=== PATIENT | male | born 1935 | race African-American/Black ===

== ENCOUNTER 2024-07-22 17:00 | Inpatient (IN) | payer MEDICARE ==
[2024-07-22 17:29] LABS: Bacteria/HPF None Seen HPF (None Seen); Bilirubin Negative (Negative); Blood, Urine Trace (Negative); CAUTI Indications for Culture Dysuria,urgency,freq; Clarity Clear (Clear); Glucose, Urine (Dipstick) 30 mg/dL (Negative); Ketone, Urine Negative (Negative); Leukocyte Negative Leu/uL (Negative); Nitrite Negative (Negative); Protein, Urine (Dipstick) 20 mg/dL (Neg-Trace); RBC/HPF None Seen HPF (0-3); Specific Gravity, Urine 1.005 (1.002-1.036); Squamous Epithelial None Seen HPF (0-3); Urobilinogen Normal mg/dL (Less than 2); WBC/HPF 0-3 HPF (0-3); pH, Urine 6.5 (5.0-9.0)
[2024-07-22 17:30] LABS: Urine Culture Reflex No No
[2024-07-22 18:15] LABS: #Basophils 0.04 10x3/uL (0.0-0.2); %Basophils 0.5 % (0.0-1.0); %Eosinophils 1.4 % (0.0-10.0); %Monocytes 9.3 % (0.0-10.0); %Neutrophils 66.4 % (42.0-75.0); Hematocrit 36.9 % (42.0-52.0); Hemoglobin 11.9 g/dL (14.0-18.0); Mean Corpuscular HGB CONC 32.2 g/dL (32.0-36.0); Mean Corpuscular Hemoglobin 31.7 pg (27.0-31.0); Mean Corpuscular Volume 98.4 fL (78.0-98.0); Mean Platelet Volume 9.5 fL (7.4-10.4); Platelet Count 173 10x3/uL (130-400); RBC Distribution Width 13.2 % (11.5-14.5); Red Blood Cell (RBC) Count 3.75 mill/uL (4.70-6.10)
[2024-07-22 18:32] LABS: ALT (SGPT) 20 U/L (8-55); AST (SGOT) 24 U/L (5-34); Albumin 3.8 g/dL (3.4-4.8); Alkaline Phosphatase 67 U/L (40-110); Anion Gap 16 mmol/L (10-20); BUN (Urea Nitrogen) 23 mg/dL (8.4-25.7); Bilirubin, Total 0.4 mg/dL (0.2-1.2); Calc. Creatinine Clearance 0 mL/min (70-130); Calcium 9.3 mg/dL (7.8-10.44); Carbon Dioxide 23 mmol/L (23-31); Chloride 104 mmol/L (98-107); Estimated GFR 28; Globulin 4.3 g/dL (2.4-3.5); Glucose 132 mg/dL (83-110); Lipase 20 U/L (8-78); Potassium 4.4 mmol/L (3.5-5.1); Protein, Total 8.1 g/dL (5.8-8.1); Sodium 139 mmol/L (136-145)
[2024-07-22 18:40] LABS: Prothrombin Time 13.5 sec (12.0-14.7)
[2024-07-22 18:41] LABS: PTT 28.9 sec (22.9-36.1)
[2024-07-22 18:43] LABS: D-Dimer Test 0.57 mcg/mL (0.27-0.43)
[2024-07-22 19:06] LABS: Troponin I 0.056 ng/mL (< 0.028)
[2024-07-22] MEDS ORDERED: Nitroglycerin 0.4 MG TAB 1 EACH ONE (19:46)
[2024-07-22] MEDS ORDERED: Heparin 5,000 UNITS/ML VIAL ONE (19:46)
[2024-07-22] MEDS ORDERED: Heparin 25,000 units/D5W 500 ML ONE (19:46)
[2024-07-22] MEDS ORDERED: Metoprolol Tartrate 5 MG (5 mL) VIAL ONE ×2 (21:11→22:23)
[2024-07-23] MEDS ORDERED: Ondansetron ODT 4 MG TAB PO PRN (00:14)
[2024-07-23] MEDS ORDERED: Acetaminophen 650 MG Suppository PR PRN (00:14)
[2024-07-23] MEDS ORDERED: Ondansetron PF 4 MG/2 ML Vial IVP PRN (00:14)
[2024-07-23] MEDS ORDERED: Heparin 25,000 units/D5W 500 ML IVPB SCH (00:15)
[2024-07-23] MEDS ORDERED: Heparin 10,000 UNITS/ 10 ML VIAL SLOW IVP SCH (00:15)
[2024-07-23 00:54] LABS: Hematocrit 35.8 % (42.0-52.0); Hemoglobin 11.8 g/dL (14.0-18.0); Platelet Count 177 10x3/uL (130-400)
[2024-07-23 01:13] LABS: PTT 173.2 sec (22.9-36.1)
[2024-07-23 01:24] LABS: Troponin I 0.061 ng/mL (< 0.028)
[2024-07-23 02:10] LABS: #Basophils 0.04 10x3/uL (0.0-0.2); %Basophils 0.5 % (0.0-1.0); %Eosinophils 1.7 % (0.0-10.0); %Lymphocytes 25.1 % (21.0-51.0); %Monocytes 9.4 % (0.0-10.0); %Neutrophils 63.1 % (42.0-75.0); Hematocrit 34.4 % (42.0-52.0); Hemoglobin 11.4 g/dL (14.0-18.0); Mean Corpuscular HGB CONC 33.1 g/dL (32.0-36.0); Mean Corpuscular Hemoglobin 31.8 pg (27.0-31.0); Mean Corpuscular Volume 95.8 fL (78.0-98.0); Mean Platelet Volume 9.3 fL (7.4-10.4); Platelet Count 171 10x3/uL (130-400); RBC Distribution Width 13.2 % (11.5-14.5); Red Blood Cell (RBC) Count 3.59 mill/uL (4.70-6.10)
[2024-07-23 02:33] LABS: Troponin I 0.067 ng/mL (< 0.028)
[2024-07-23 02:48] LABS: Anion Gap 14 mmol/L (10-20); BUN (Urea Nitrogen) 20 mg/dL (8.4-25.7); Calc. Creatinine Clearance 0 mL/min (70-130); Calcium 8.9 mg/dL (7.8-10.44); Carbon Dioxide 23 mmol/L (23-31); Chloride 105 mmol/L (98-107); Estimated GFR 33; Glucose 125 mg/dL (83-110); Potassium 3.9 mmol/L (3.5-5.1); Sodium 138 mmol/L (136-145)
[2024-07-23 04:40] VITALS: BMI 27.7
[2024-07-23] MEDS ORDERED: Acetaminophen 325 MG TAB ONE (06:17)
[2024-07-23] MEDS ORDERED: Digoxin 0.25 MG TAB ONE (06:17)
[2024-07-23] MEDS: Digoxin 0.25 MG TAB PO SCH (06:25)
[2024-07-23] MEDS: Acetaminophen 325 MG TAB PO SCH (06:27)
[2024-07-23] MEDS ORDERED: traMADol HCl 50 MG TAB PO PRN (06:40)
[2024-07-23] MEDS ORDERED: Tamsulosin HCl 0.4 MG CAP ONE (08:27)
[2024-07-23] MEDS ORDERED: Doxazosin 2 MG TAB ONE (08:28)
[2024-07-23] MEDS ORDERED: Famotidine 20 MG TAB ONE (08:28)
[2024-07-23] MEDS: Ezetimibe 10 MG TAB PO SCH (08:56)
[2024-07-23] MEDS: Doxazosin Mesylate 4 MG TAB PO SCH (08:56)
[2024-07-23] MEDS: Icosapent Ethyl 1 GM CAPSULE PO SCH (08:56)
[2024-07-23] MEDS: Oxybutynin ER 5 MG TAB PO SCH (08:57)
[2024-07-23] MEDS: Pantoprazole DR 40 MG TAB PO SCH (08:57)
[2024-07-23] MEDS: Ranolazine ER 500 MG TAB PO SCH (08:57)
[2024-07-23] MEDS: Famotidine 20 MG TAB PO SCH (08:57)
[2024-07-23] MEDS: Tamsulosin HCl 0.4 MG CAP PO SCH (08:58)
[2024-07-23] MEDS: Rosuvastatin 20 MG TAB PO SCH (08:58)
[2024-07-23] MEDS: Famotidine/PF 20 mg/2ml Vial SLOW IVP SCH (13:08)
[2024-07-23] MEDS: Diltiazem HCl/D5W 125 MG in Premix 1 BAG IVPB SCH (13:38)
[2024-07-23] MEDS ORDERED: Carvedilol 6.25 MG TAB PO SCH (21:00)
[2024-07-23] MEDS: Enoxaparin 100 MG (1 mL) SYRINGE SC SCH (21:49)
[2024-07-23] MEDS: Carvedilol 25 MG TAB PO SCH (21:50)
[2024-07-24 04:12] LABS: #Basophils 0.04 10x3/uL (0.0-0.2); %Basophils 0.4 % (0.0-1.0); %Eosinophils 1.3 % (0.0-10.0); %Lymphocytes 22.6 % (21.0-51.0); %Monocytes 9.5 % (0.0-10.0); %Neutrophils 65.9 % (42.0-75.0); Hematocrit 36.8 % (42.0-52.0); Hemoglobin 12.1 g/dL (14.0-18.0); Mean Corpuscular HGB CONC 32.9 g/dL (32.0-36.0); Mean Corpuscular Hemoglobin 31.7 pg (27.0-31.0); Mean Corpuscular Volume 96.3 fL (78.0-98.0); Mean Platelet Volume 9.6 fL (7.4-10.4); Platelet Count 181 10x3/uL (130-400); Red Blood Cell (RBC) Count 3.82 mill/uL (4.70-6.10)
[2024-07-24 04:32] LABS: ALT (SGPT) 17 U/L (8-55); AST (SGOT) 21 U/L (5-34); Albumin 3.4 g/dL (3.4-4.8); Alkaline Phosphatase 62 U/L (40-110); Anion Gap 13 mmol/L (10-20); BUN (Urea Nitrogen) 25 mg/dL (8.4-25.7); Bilirubin, Total 0.5 mg/dL (0.2-1.2); Calc. Creatinine Clearance 32 mL/min (70-130); Carbon Dioxide 23 mmol/L (23-31); Cardiac Risk 2.5 (Less than 4.5); Chloride 104 mmol/L (98-107); Cholesterol 145 mg/dl (< 200 Desired); Estimated GFR 30; Glucose 121 mg/dL (83-110); HDL Cholesterol 58 mg/dL (>60 Neg Risk); LDL Cholesterol, Calculated 74 mg/dL; Protein, Total 7.4 g/dL (5.8-8.1); Sodium 136 mmol/L (136-145); Triglycerides 66 mg/dL (Less than 150)
[2024-07-24] MEDS ORDERED: PROPOFOL 200 MG/20 ML VIAL ONE (08:36)
[2024-07-24] MEDS ORDERED: Lidocaine 1% PF 5 ML VIAL ONE (08:36)
[2024-07-24] MEDS: Enoxaparin 100 MG (1 mL) SYRINGE SC SCH (10:17)
[2024-07-24] MEDS: NIFEdipine XL 60 MG ER.TAB PO SCH (10:18)
[2024-07-24] MEDS: Aspirin 81 mg Enteric Coated Tablet PO SCH (10:19)
[2024-07-24] MEDS: Carvedilol 25 MG TAB PO SCH ×2 (17:19→20:48)
[2024-07-24] MEDS: Rosuvastatin 20 MG TAB PO SCH (20:47)
[2024-07-24 20:50] LABS: Magnesium 2.2 mg/dL (1.6-2.6)
[2024-07-25 00:43] LABS: Hematocrit 33.5 % (42.0-52.0); Platelet Count 161 10x3/uL (130-400)
[2024-07-25] MEDS: Apixaban 2.5 MG TAB PO SCH (08:37)
[2024-07-25] MEDS: NIFEdipine XL 60 MG ER.TAB PO SCH (08:37)
[2024-07-25 12:58] VITALS: BP 169/79; TEMP 98.4
[2024-07-26] MEDS ORDERED: FLU (Fluad Triv) TS24-25 (65UP)/MF59C/PF 45 MCG/0.5 ML Syringe IM ONE (15:00)
== END 2024-07-25 15:05 | disposition home or self-care (01) | DRG 309 ==
LOC: ERS 17:00 → ERHOLD 22:57 → 2NO 07-23 11:56
PROVIDERS: ADMIT Student in an Organized Health Care Education/Training Program; ATTEND Internal Medicine
PROC: 5A2204Z Restoration of Cardiac Rhythm, Single (ICD-10-PCS; principal; 2024-07-24)
DX: I48.92 Unspecified atrial flutter (principal); I13.0 Hypertensive heart and chronic kidney disease with heart failure and stage 1 through stage 4 chronic kidney disease, or unspecified chronic kidney disease; N17.9 Acute kidney failure, unspecified; I48.91 Unspecified atrial fibrillation; I25.10 Atherosclerotic heart disease of native coronary artery without angina pectoris; N18.9 Chronic kidney disease, unspecified; E78.5 Hyperlipidemia, unspecified; N40.0 Benign prostatic hyperplasia without lower urinary tract symptoms; Z95.1 Presence of aortocoronary bypass graft; I50.83 High output heart failure; F41.9 Anxiety disorder, unspecified; F32.A Depression, unspecified; Z98.890 Other specified postprocedural states; Z79.899 Other long term (current) drug therapy; Z90.49 Acquired absence of other specified parts of digestive tract; Z79.82 Long term (current) use of aspirin; I35.0 Nonrheumatic aortic (valve) stenosis; I34.0 Nonrheumatic mitral (valve) insufficiency
CPT/HCPCS: 36415; 36416; 71045; 80048; 80053; 80061; 81001; 83690; 83735; 83880; 84443; 84484; 85014; 85018; 85025; 85049; 85379; 85610; 85730; 92960; 93005; 93010; 93312; 94760; 96365; 96366; 96375; 96376; J1644; J1650; J2704

== ENCOUNTER 2024-08-16 11:03 | Day surgery (SDC) | payer MEDICARE ==
[2024-08-16 12:30] LABS: #Basophils Less than 0.03 10x3/uL (0.0-0.2); %Basophils 0.3 % (0.0-1.0); %Eosinophils 3.3 % (0.0-10.0); %Lymphocytes 22.5 % (21.0-51.0); %Monocytes 9.7 % (0.0-10.0); %Neutrophils 63.9 % (42.0-75.0); Hematocrit 30.4 % (42.0-52.0); Hemoglobin 9.8 g/dL (14.0-18.0); Mean Corpuscular HGB CONC 32.2 g/dL (32.0-36.0); Mean Corpuscular Hemoglobin 31.8 pg (27.0-31.0); Mean Corpuscular Volume 98.7 fL (78.0-98.0); Mean Platelet Volume 9.3 fL (7.4-10.4); Platelet Count 130 10x3/uL (130-400); RBC Distribution Width 13.3 % (11.5-14.5); Red Blood Cell (RBC) Count 3.08 mill/uL (4.70-6.10)
[2024-08-16 12:58] LABS: Anion Gap 12 mmol/L (10-20); BUN (Urea Nitrogen) 20 mg/dL (8.4-25.7); Calc. Creatinine Clearance 0 mL/min (70-130); Calcium 8.3 mg/dL (7.8-10.44); Carbon Dioxide 25 mmol/L (23-31); Chloride 107 mmol/L (98-107); Estimated GFR 25; Glucose 116 mg/dL (83-110); Potassium 4.4 mmol/L (3.5-5.1); Sodium 140 mmol/L (136-145)
[2024-08-16] MEDS ORDERED: PROPOFOL 0 ML ONE (13:43)
[2024-08-16 16:59] LABS: Macrocytosis SLIGHT = 6-15 cells HPF (0-5); Ovalocytes SLIGHT = 2-5 cells HPF (0-1); Platelet Adequacy Comment Platelets Normal; Polychromasia SLIGHT = 2-3 cells HPF (0-2); Schistocytes SLIGHT = 2-5 cells HPF (0-1)
== END 2024-08-16 14:40 | disposition home or self-care (01) ==
LOC: SDC 11:03
PROVIDERS: ATTEND Internal Medicine Cardiovascular Disease
PROC: 5A2204Z Restoration of Cardiac Rhythm, Single (ICD-10-PCS; principal; 2024-08-16)
DX: I48.92 Unspecified atrial flutter (principal); I25.119 Atherosclerotic heart disease of native coronary artery with unspecified angina pectoris; I34.0 Nonrheumatic mitral (valve) insufficiency; I35.0 Nonrheumatic aortic (valve) stenosis; I12.9 Hypertensive chronic kidney disease with stage 1 through stage 4 chronic kidney disease, or unspecified chronic kidney disease; N18.9 Chronic kidney disease, unspecified; E78.2 Mixed hyperlipidemia; Z90.49 Acquired absence of other specified parts of digestive tract; Z95.1 Presence of aortocoronary bypass graft; Z79.82 Long term (current) use of aspirin; Z79.01 Long term (current) use of anticoagulants; Z79.899 Other long term (current) drug therapy
CPT/HCPCS: 80048; 85025; 92960; 93005; 93010; J2704

== ENCOUNTER 2024-08-23 10:56 | Inpatient (IN) | payer MEDICARE ==
[2024-08-23 11:38] LABS: #Basophils 0.03 10x3/uL (0.0-0.2); %Basophils 0.4 % (0.0-1.0); %Eosinophils 2.1 % (0.0-10.0); %Monocytes 11.4 % (0.0-10.0); %Neutrophils 73.7 % (42.0-75.0); Hematocrit 29.1 % (42.0-52.0); Hemoglobin 9.3 g/dL (14.0-18.0); Mean Corpuscular Hemoglobin 31.3 pg (27.0-31.0); Platelet Count 134 10x3/uL (130-400); RBC Distribution Width 13.2 % (11.5-14.5); Red Blood Cell (RBC) Count 2.97 mill/uL (4.70-6.10)
[2024-08-23] MEDS ORDERED: Pantoprazole 40 MG VIAL ONE (11:48)
[2024-08-23] MEDS ORDERED: Furosemide 40 MG (4 mL) VIAL ONE (11:51)
[2024-08-23 11:57] LABS: Troponin I 0.028 ng/mL (< 0.028)
[2024-08-23 12:03] LABS: ALT (SGPT) 43 U/L (8-55); AST (SGOT) 53 U/L (5-34); Albumin 3.3 g/dL (3.4-4.8); Alkaline Phosphatase 55 U/L (40-110); Anion Gap 15 mmol/L (10-20); BUN (Urea Nitrogen) 33 mg/dL (8.4-25.7); Bilirubin, Total 0.5 mg/dL (0.2-1.2); Calc. Creatinine Clearance 0 mL/min (70-130); Calcium 8.7 mg/dL (7.8-10.44); Carbon Dioxide 24 mmol/L (23-31); Chloride 107 mmol/L (98-107); Estimated GFR 19; Glucose 122 mg/dL (83-110); Potassium 4.6 mmol/L (3.5-5.1); Protein, Total 7.3 g/dL (5.8-8.1); Sodium 141 mmol/L (136-145)
[2024-08-23] MEDS ORDERED: Heparin 5,000 UNITS/ML VIAL SC SCH (15:00)
[2024-08-23 18:42] LABS: Troponin I 0.025 ng/mL (< 0.028)
[2024-08-23] MEDS ORDERED: Famotidine 20 MG TAB ONE (22:15)
[2024-08-23] MEDS ORDERED: Atorvastatin Calcium 40 MG TAB ONE (22:15)
[2024-08-23] MEDS ORDERED: Apixaban 5 MG TAB ONE (22:15)
[2024-08-23] MEDS: Atorvastatin Calcium 40 MG TAB PO SCH (22:20)
[2024-08-23] MEDS: Apixaban 2.5 MG TAB PO SCH (22:20)
[2024-08-23] MEDS: Famotidine 20 MG TAB PO SCH (22:20)
[2024-08-24 03:59] VITALS: BMI 29.7
[2024-08-24 05:32] LABS: #Basophils 0.03 10x3/uL (0.0-0.2); %Basophils 0.4 % (0.0-1.0); %Eosinophils 1.9 % (0.0-10.0); %Lymphocytes 13.5 % (21.0-51.0); %Monocytes 13.1 % (0.0-10.0); %Neutrophils 70.8 % (42.0-75.0); Hematocrit 26.8 % (42.0-52.0); Hemoglobin 8.7 g/dL (14.0-18.0); Mean Corpuscular HGB CONC 32.5 g/dL (32.0-36.0); Mean Corpuscular Hemoglobin 31.3 pg (27.0-31.0); Mean Corpuscular Volume 96.4 fL (78.0-98.0); Mean Platelet Volume 9.7 fL (7.4-10.4); Platelet Count 139 10x3/uL (130-400); RBC Distribution Width 13.2 % (11.5-14.5); Red Blood Cell (RBC) Count 2.78 mill/uL (4.70-6.10)
[2024-08-24 05:45] LABS: Anion Gap 16 mmol/L (10-20); BUN (Urea Nitrogen) 31 mg/dL (8.4-25.7); Calc. Creatinine Clearance 24 mL/min (70-130); Calcium 8.6 mg/dL (7.8-10.44); Carbon Dioxide 22 mmol/L (23-31); Estimated GFR 19; Glucose 101 mg/dL (83-110); Potassium 3.8 mmol/L (3.5-5.1); Sodium 141 mmol/L (136-145)
[2024-08-24 05:46] LABS: Chloride 107 mmol/L (98-107)
[2024-08-24] MEDS ORDERED: Furosemide 40 MG (4 mL) VIAL ONE ×2 (06:01→14:24)
[2024-08-24] MEDS: Furosemide 40 MG (4 mL) VIAL SLOW IVP SCH (06:06)
[2024-08-24] MEDS: Ranolazine ER 500 MG TAB PO SCH (10:30)
[2024-08-24] MEDS: NIFEdipine XL 60 MG ER.TAB PO SCH (17:44)
[2024-08-24] MEDS: Tamsulosin HCl 0.4 MG CAP PO SCH (21:20)
[2024-08-24] MEDS: Carvedilol 6.25 MG TAB PO SCH (23:27)
[2024-08-25 05:04] LABS: Anion Gap 15 mmol/L (10-20); BUN (Urea Nitrogen) 33 mg/dL (8.4-25.7); Calc. Creatinine Clearance 24 mL/min (70-130); Calcium 8.5 mg/dL (7.8-10.44); Carbon Dioxide 27 mmol/L (23-31); Chloride 103 mmol/L (98-107); Estimated GFR 19; Glucose 99 mg/dL (83-110); Potassium 3.1 mmol/L (3.5-5.1); Sodium 142 mmol/L (136-145)
[2024-08-25] MEDS: Ezetimibe 10 MG TAB PO SCH (09:16)
[2024-08-25] MEDS: Potassium Chloride 20 MEQ TAB PO SCH (09:16)
[2024-08-25] MEDS: Acetaminophen 325 MG TAB PO PRN (21:42)
[2024-08-26 08:50] LABS: Anion Gap 15 mmol/L (10-20); BUN (Urea Nitrogen) 37 mg/dL (8.4-25.7); Calc. Creatinine Clearance 21 mL/min (70-130); Calcium 8.7 mg/dL (7.8-10.44); Carbon Dioxide 27 mmol/L (23-31); Chloride 104 mmol/L (98-107); Estimated GFR 19; Glucose 118 mg/dL (83-110); Sodium 143 mmol/L (136-145)
[2024-08-26 11:16] LABS: Magnesium 1.9 mg/dL (1.6-2.6)
[2024-08-26] MEDS: Magnesium 2 GM/50 ML(in water) 2 GM in Premix 1 BAG IVPB SCH (14:03)
[2024-08-26] MEDS: Potassium Chloride 20 MEQ TAB PO SCH (14:09)
[2024-08-27 05:47] LABS: #Basophils 0.03 10x3/uL (0.0-0.2); %Basophils 0.4 % (0.0-1.0); %Eosinophils 4.3 % (0.0-10.0); %Lymphocytes 17.1 % (21.0-51.0); %Monocytes 11.1 % (0.0-10.0); %Neutrophils 66.7 % (42.0-75.0); Hematocrit 30.8 % (42.0-52.0); Mean Corpuscular HGB CONC 32.5 g/dL (32.0-36.0); Mean Corpuscular Hemoglobin 30.9 pg (27.0-31.0); Mean Corpuscular Volume 95.1 fL (78.0-98.0); Mean Platelet Volume 9.5 fL (7.4-10.4); Platelet Count 218 10x3/uL (130-400); RBC Distribution Width 13.1 % (11.5-14.5); Red Blood Cell (RBC) Count 3.24 mill/uL (4.70-6.10)
[2024-08-27 06:45] LABS: Anion Gap 14 mmol/L (10-20); BUN (Urea Nitrogen) 36 mg/dL (8.4-25.7); Calc. Creatinine Clearance 19 mL/min (70-130); Calcium 8.8 mg/dL (7.8-10.44); Carbon Dioxide 25 mmol/L (23-31); Chloride 108 mmol/L (98-107); Estimated GFR 17; Glucose 114 mg/dL (83-110); Potassium 3.4 mmol/L (3.5-5.1); Sodium 144 mmol/L (136-145)
[2024-08-27] MEDS: Furosemide 40 MG TAB PO SCH (08:05)
[2024-08-27] MEDS: Aspirin 81 mg Enteric Coated Tablet PO SCH (08:05)
[2024-08-27] MEDS: Sodium Chloride 0.45% 500 ML IV SCH (08:06)
[2024-08-27 12:14] VITALS: BP 135/64; TEMP 97.9
== END 2024-08-27 13:13 | disposition home or self-care (01) | DRG 291 ==
LOC: ERS 10:56 → ERHOLD 14:00 → 2NO 08-24 18:32
PROVIDERS: ADMIT Internal Medicine; ATTEND Hospitalist
DX: I13.0 Hypertensive heart and chronic kidney disease with heart failure and stage 1 through stage 4 chronic kidney disease, or unspecified chronic kidney disease (principal); I50.33 Acute on chronic diastolic (congestive) heart failure; I48.92 Unspecified atrial flutter; N17.9 Acute kidney failure, unspecified; N18.4 Chronic kidney disease, stage 4 (severe); I25.10 Atherosclerotic heart disease of native coronary artery without angina pectoris; D63.1 Anemia in chronic kidney disease; E78.5 Hyperlipidemia, unspecified; I48.91 Unspecified atrial fibrillation; F41.9 Anxiety disorder, unspecified; F32.A Depression, unspecified; N40.0 Benign prostatic hyperplasia without lower urinary tract symptoms; Z79.01 Long term (current) use of anticoagulants; Z79.82 Long term (current) use of aspirin; Z79.899 Other long term (current) drug therapy; Z95.1 Presence of aortocoronary bypass graft
CPT/HCPCS: 36415; 71045; 80048; 80053; 83735; 83880; 84443; 84484; 85025; 93005; 93306; 96374; J1940; J2470; J3475